=== PATIENT | female | born 1985 | race African-American/Black ===

== ENCOUNTER 2017-05-22 17:15 | Inpatient (IN) | payer OTHER ==
[2017-05-28 13:37] VITALS: BMI 69.4
[2017-06-06] MEDS ORDERED: Heparin 5,000 UNITS/ML VIAL ONE (15:17)
[2017-06-06] MEDS ORDERED: CEFAZOLIN/Water 2 GM/20 ML SYRINGE ONE (15:17)
[2017-06-06] MEDS ORDERED: Midazolam HCl 2 mg/2 ml Vial ONE (16:29)
[2017-06-06] MEDS ORDERED: Fentanyl 250 MCG/5 ML VIAL ONE (16:29)
[2017-06-06] MEDS ORDERED: Bupivacaine/Epinephrine 0.25% 30 ML VIAL ONE (16:43)
[2017-06-06] MEDS ORDERED: Ondansetron HCl/PF 4 MG/2 ML Vial ONE (16:44)
[2017-06-06] MEDS ORDERED: Glycopyrrolate 0.2 MG/ML 5 ML SYRINGE ONE (16:44)
[2017-06-06] MEDS ORDERED: Lidocaine 1% PF 5 ML VIAL ONE (16:44)
[2017-06-06] MEDS ORDERED: Propofol 200 MG/20 ML VIAL ONE (16:44)
[2017-06-06] MEDS ORDERED: Succinylcholine Chloride 20 MG/ML 10 ml SYRINGE FS ONE (16:44)
[2017-06-06] MEDS ORDERED: Ketorolac Tromethamine 30 MG/ML VIAL ONE (16:44)
[2017-06-06] MEDS ORDERED: Fentanyl 100 MCG/2 ML VIAL ONE ×3 (17:51→19:39)
[2017-06-06] MEDS ORDERED: HYDROmorphone 0.5 MG/0.5 ML SYRINGE ONE (17:52)
[2017-06-06] MEDS ORDERED: HYDROmorphone 2 MG/ML VIAL SLOW IVP PRN (18:59)
[2017-06-06] MEDS ORDERED: Promethazine HCl 25 MG/ML VIAL IM PRN ×2 (18:59→20:47)
[2017-06-06] MEDS ORDERED: Promethazine HCl 25 MG/ML VIAL SLOW IVP PRN (18:59)
[2017-06-06] MEDS ORDERED: Ondansetron HCl/PF 4 MG/2 ML Vial IVP PRN ×2 (18:59→20:47)
[2017-06-06] MEDS ORDERED: Promethazine HCl 25 MG/ML VIAL ONE (19:20)
[2017-06-06] MEDS ORDERED: Fentanyl 5000 MCG/250 ML CADD IVPB PRN (19:27)
[2017-06-06] MEDS ORDERED: diphenhydrAMINE 50 MG/ML VIAL IM PRN (19:27)
[2017-06-06] MEDS ORDERED: Naloxone HCl 0.4 mg/ml Vial IV PRN (19:27)
[2017-06-06] MEDS ORDERED: diphenhydrAMINE 25 MG CAP PO PRN (19:27)
[2017-06-06] MEDS ORDERED: Zolpidem Tartrate 5 MG TAB PO PRN (19:27)
[2017-06-06] MEDS ORDERED: diphenhydrAMINE 50 MG/ML VIAL IVP PRN ×2 (19:27→20:47)
[2017-06-06] MEDS ORDERED: Communication Order-Pharmacy FS SCH (19:30)
[2017-06-06] MEDS ORDERED: fentaNYL Citrate/PF 2,000 MCG in Sodium Chloride 0.9% 60 ML IV PRN (19:45)
[2017-06-06] MEDS ORDERED: Dextrose 5% in Water 1,000 ML IV PRN (20:47)
[2017-06-06] MEDS ORDERED: HumaLOG 300 UNITS/3 ML VIAL SC PRN (20:47)
[2017-06-06] MEDS ORDERED: Dextrose 50% Abboject 50 ML SYRINGE SLOW IVP PRN (20:47)
[2017-06-06] MEDS: 1/2 NS w/KCL 20 mEq 1,000 ML IV SCH (21:09)
[2017-06-06] MEDS: Ondansetron HCl/PF 4 MG/2 ML Vial IVP PRN (21:10)
[2017-06-06] MEDS: Promethazine HCl 25 MG/ML VIAL IM PRN (22:46)
[2017-06-07] MEDS: hydrALAZINE 20 MG/ML VIAL SLOW IVP PRN ×2 (00:29→09:03)
--- NOTE | 2017-06-07 01:21 | OP ---
DATE OF PROCEDURE: 06/06/2017 PREOPERATIVE DIAGNOSES: 1. Morbid obesity with a body mass index of 66. 2. Hypertension. 3. Diabetes mellitus, type 2. POSTOPERATIVE DIAGNOSES: 1. Morbid obesity with a body mass index of 66. 2. Hypertension. 3. Diabetes mellitus, type 2. PROCEDURES: 1. Laparoscopic sleeve gastrectomy with [place] staple line reinforcements and 38 [place] bougie. 2. EGD. SURGEON: Zana Gomes M.D. ANESTHESIA: General. ESTIMATED BLOOD LOSS: 50 mL. COMPLICATIONS: None. FINDINGS: Normal postoperative esophagogastroduodenoscopy. INDICATION: The patient is a 31-year-old female with a history of super morbid obesity associated wi th hypertension and diabetes mellitus. She now presents for weight loss surgery. She has attended o preoperative seminar and had the dietary counseling, preoperative education, and psychologic evalu ation. She understands risks, benefits, alternative procedures for weight loss and gives consent for sleeve gastrectomy. TECHNIQUE: The patient was taken to the operating room and laid supine on the operating room supine on the table. After general anesthetic was obtained, OG tube was used to decompress the stomach. Ar ms, and legs were double strapped to a bariatric table. Her abdomen was prepped and draped in a ster ile fashion. Left subcostal 5-mm Optiview trocar placed in the usual fashion and high-flow pneumoper itoneum was obtained. Left and right abdominal 12-mm ports as well as right subcostal 5-mm port were placed under direct visualization. A 5-mm incision was made at the xiphoid. The Deb was used to raise the liver off the GE junction. Short gastrics were taken down from mid body of stomach to left alejandro of diaphragm. Left alejandro of diaphragm, angle of His, and posterior fundus were completely d issected. The short gastrics were taken down to a distance of 6 cm proximal to the pylorus. Multipl e loads of an [place] stapling device are used to form the sleeve. The 38 bougie was brought in and its tip left in the antrum of the stomach. The first fire was fired up at a distance of 6 cm proxima l to the pylorus angled up towards the incisura. Care was taken to avoid being too close to the inci bret. Multiple loads were then fired up along the bougie and the stomach was completely transected a t the angle of His. The stomach was removed from the left abdominal incision. This fascial defect w as closed using GraNee needle and 0 Vicryl ties. All port sites were infiltrated using local anesthe tic. EGD scope was passed via esophagus, stomach to the level of the duodenum without obstruction. There was no air leakage through the staple line, no bleeding internally or externally on the staple line. EGD scope was used to decompress the stomach, it was pulled and removed. The Deb retrac tor was removed under direct visualization without bleeding. All ports are removed under direct visu alization without bleeding. Pneumoperitoneum was let down. Vicryl was used to close the fascial def ect from left abdominal incision. All incisions were irrigated and closed using 4-0 Monocryl and Abelino mabond. The patient went to recovery room in stable condition. All instrument counts, needle counts , and lap counts were correct.
[2017-06-07] MEDS: Ondansetron HCl/PF 4 MG/2 ML Vial IVP PRN ×3 (03:24→17:06)
[2017-06-07] MEDS: Promethazine HCl 25 MG/ML VIAL IM PRN ×3 (05:26→19:49)
[2017-06-07] MEDS: 1/2 NS w/KCL 20 mEq 1,000 ML IV SCH ×2 (05:28→13:38)
[2017-06-07 05:32] LABS: #Lymphocytes 1.2 thou/uL (1.20-3.40); #Monocytes 0.6 thou/uL (0.11-0.59); #Neutrophils 9.6 thou/uL (1.40-6.50); %Basophils 0.2 % (0.0-1.0); %Eosinophils 0.1 % (0.0-10.0); %Lymphocytes 10.1 % (21.0-51.0); %Monocytes 5.3 % (0.0-10.0); %Neutrophils 84.3 % (42.0-75.0); Hemoglobin 12.3 g/dL (12.0-16.0); Mean Corpuscular HGB CONC 33.3 g/dL (32.0-36.0); Mean Corpuscular Volume 87.1 fl (81.0-99.0); Mean Platelet Volume 7.6 fL (7.4-10.4); Platelet Count 259 thou/uL (130-400); RBC Distribution Width 13.8 % (11.5-14.5); Red Blood Cell (RBC) Count 4.23 mill/uL (4.20-5.40); White Blood Cell (WBC) Count 11.4 thou/uL (4.8-10.8)
[2017-06-07 05:39] LABS: Anion Gap 13 mmol/L (10-20); BUN (Urea Nitrogen) 8 mg/dL (7.0-18.7); Calc. Creatinine Clearance 345 mL/min (70-130); Calcium 9.3 mg/dL (7.8-10.44); Carbon Dioxide 24 mmol/L (22-29); Chloride 102 mmol/L (98-107); Estimated GFR-MDRD Greater than 90; Glucose 165 mg/dL (70-105); Potassium 4.1 mmol/L (3.5-5.1); Sodium 135 mmol/L (136-145)
[2017-06-07] MEDS: Pantoprazole 40 MG VIAL IVP SCH (08:51)
[2017-06-07] MEDS: Enoxaparin Sodium 40 MG/0.4 ML SYRINGE SC SCH (08:51)
--- NOTE | 2017-06-07 09:23 | RAD ---
LIMITED UPPER GI WITH 15 ML GASTROGRAFIN: History: Post bariatric surgery. FINDINGS: There is good passage of contrast from the esophagus into the gastric remnant. No contrast extravasat ion is seen. IMPRESSION: No evidence of obstruction or leak. POS: PATY
[2017-06-07] MEDS: Hydrocodone-Acetamin 15 ML UDCUP PO PRN ×4 (10:47→19:48)
[2017-06-07] MEDS ORDERED: cloNIDine 0.1 MG TAB PO PRN (11:12)
--- NOTE | 2017-06-07 11:37 | PRG ---
DATE OF SERVICE: 06/07/2017 SUBJECTIVE: Postop day #1, gastric sleeve. Ms. Strickland is complaining of nausea this morning. Her swallow test was clear without leak and there was good passage of contrast through the stomach. She has been ambulatory once last night. She was done late in the day yesterday. PHYSICAL EXAMINATION: VITAL SIGNS: Her blood pressure is high at 170/90, pulse 92, temperature 98.2. ABDOMEN: Soft, appropriately tender. Wounds healing well. ASSESSMENT: Postop day #1, gastric sleeve. PLAN: Continue observation. Switch to oral pain control.
[2017-06-07] MEDS ORDERED: Triamterene/Hydrochlorothiazide 37.5 mg/25 mg Tablet PO SCH (13:30)
[2017-06-07] MEDS ORDERED: Losartan Potassium 25 MG TAB PO SCH (13:30)
[2017-06-07] MEDS ORDERED: Amlodipine 10 MG TAB PO SCH (13:30)
[2017-06-07] MEDS ORDERED: Amitriptyline HCl 25 MG TAB PO SCH (21:00)
[2017-06-08] MEDS: Ondansetron HCl/PF 4 MG/2 ML Vial IVP PRN ×3 (00:14→15:02)
[2017-06-08] MEDS: Hydrocodone-Acetamin 15 ML UDCUP PO PRN ×4 (00:14→15:02)
[2017-06-08] MEDS: 1/2 NS w/KCL 20 mEq 1,000 ML IV SCH (03:00)
[2017-06-08] MEDS: Promethazine HCl 25 MG/ML VIAL IM PRN (05:01)
[2017-06-08] MEDS ORDERED: Losartan Potassium 25 MG TAB PO SCH (09:00)
[2017-06-08] MEDS ORDERED: Amlodipine 10 MG TAB PO SCH ×2 (09:00)
[2017-06-08] MEDS ORDERED: FLUoxetine HCl 10 MG CAP PO SCH (09:00)
[2017-06-08] MEDS ORDERED: Triamterene/Hydrochlorothiazide 37.5 mg/25 mg Tablet PO SCH (09:00)
[2017-06-08] MEDS: Pantoprazole 40 MG VIAL IVP SCH (09:55)
[2017-06-08] MEDS: Enoxaparin Sodium 40 MG/0.4 ML SYRINGE SC SCH (09:56)
[2017-06-08 12:13] VITALS: BP 120/82; TEMP 97.7
== END 2017-06-08 15:38 | disposition home or self-care (01) | DRG 621 ==
LOC: SURG B 06-06 14:33 → SURG A 06-06 20:35
PROVIDERS: ADMIT Surgery; ATTEND Surgery
PROC: 0DB64Z3 Excision of Stomach, Percutaneous Endoscopic Approach, Vertical (ICD-10-PCS; principal; 2017-06-06)
PROC: 3E0T3BZ Introduction of Anesthetic Agent into Peripheral Nerves and Plexi, Percutaneous Approach (ICD-10-PCS; 2017-06-06)
DX: E66.01 Morbid (severe) obesity due to excess calories (principal); E11.69 Type 2 diabetes mellitus with other specified complication; I10 Essential (primary) hypertension; Z68.44 Body mass index [BMI] 60.0-69.9, adult; Z91.013 Allergy to seafood
CPT/HCPCS: 36415; 36416; 74241; 80048; 85025; 88307; 88312; C9113; J0360; J1170; J1200; J1644; J1650; J1885; J2001; J2250; J2405; J2550; J2704; J3010; J7050

== ENCOUNTER 2017-05-28 13:17 | Outpatient (CLI) | payer OTHER ==
[2017-05-28 14:29] LABS: #Eosinphils 0.3 thou/uL (0.0-0.7); #Lymphocytes 1.8 thou/uL (1.20-3.40); #Monocytes 0.5 thou/uL (0.11-0.59); %Basophils 0.4 % (0.0-1.0); %Eosinophils 3.3 % (0.0-10.0); %Lymphocytes 23.8 % (21.0-51.0); %Monocytes 6.5 % (0.0-10.0); Hematocrit 36.3 % (36.0-47.0); Mean Platelet Volume 7.7 fL (7.4-10.4); Red Blood Cell (RBC) Count 4.13 mill/uL (4.20-5.40); White Blood Cell (WBC) Count 7.6 thou/uL (4.8-10.8)
[2017-05-28 14:51] LABS: Hemoglobin A1c 7.1 % (4.0-6.0)
[2017-05-28 14:55] LABS: ALT (SGPT) 43 U/L (8-55); AST (SGOT) 57 U/L (5-34); Alkaline Phosphatase 97 U/L (40-150); Anion Gap 11 mmol/L (10-20); BUN (Urea Nitrogen) 9 mg/dL (7.0-18.7); Bilirubin, Direct 0.3 mg/dL (0.1-0.3); Bilirubin, Total 0.7 mg/dL (0.2-1.2); Calc. Creatinine Clearance 0 mL/min (70-130); Calcium 8.7 mg/dL (7.8-10.44); Carbon Dioxide 29 mmol/L (22-29); Chloride 102 mmol/L (98-107); Estimated GFR-MDRD Greater than 90; Globulin 3.1 g/dL (2.4-3.5)
--- NOTE | 2017-05-28 16:28 | RAD ---
CHEST TWO VIEWS: Comparison: 02-13-08 History: Pre-operative exam. FINDINGS: Normal cardiac silhouette. The pulmonary vessels and hilum are normal. No mass. No consolidation. No pneumothorax or osseous abnormalities. IMPRESSION: No acute cardiopulmonary process. POS: ISATU
--- NOTE | 2017-05-29 16:31 | EKG ---
Test Reason : Blood Pressure : / mmHG Vent. Rate : 081 BPM Atrial Rate : 081 BPM P-R Int : 154 ms QRS Dur : 088 ms QT Int : 400 ms P-R-T Axes : 008 007 032 degrees QTc Int : 464 ms Normal sinus rhythm Nonspecific ST abnormalty Borderline ECG Confirmed by JACKIE KHAN ([id number]) on 05/29/2017 4:31:00 PM Referred By: ISAIAS Confirmed By:JACKIE KHAN
== END 2017-05-28 13:18 | disposition home or self-care (01) ==
LOC: LABBT 13:17
PROVIDERS: ATTEND Surgery
DX: Z01.818 Encounter for other preprocedural examination (principal); E66.01 Morbid (severe) obesity due to excess calories
CPT/HCPCS: 71020; 80053; 80076; 83036; 84703; 85025; 93005; 93010

== ENCOUNTER → 2017-10-20 | Day surgery (SDC) | payer OTHER | LOC: SCSER/OP 11:29 | PROVIDERS: ATTEND Surgery | DX: R19.7 Diarrhea, unspecified (principal); Z91.013 Allergy to seafood ==

== ENCOUNTER 2018-04-24 10:57 | Day surgery (SDC) | payer OTHER ==
[2018-04-23 10:47] VITALS: BMI 48.4
[2018-04-24] MEDS ORDERED: hydrALAZINE 20 MG/ML VIAL ONE (12:05)
[2018-04-24 12:07] LABS: BHCG - Serum Negative (NEGATIVE); Pregs Control Background? CLEAR/WHITE (CLR/WHITE); Pregs Control Bar Appear? YES (CONTROL BAR)
[2018-04-24] MEDS ORDERED: Midazolam HCl 2 mg/2 ml Vial ONE (12:11)
[2018-04-24] MEDS ORDERED: Metoprolol Tartrate 5 MG/5 ML VIAL ONE (13:13)
[2018-04-24] MEDS ORDERED: Fentanyl 100 MCG/2 ML VIAL ONE (13:14)
[2018-04-24] MEDS ORDERED: Famotidine/PF 20 mg/2ml Vial ONE (13:14)
[2018-04-24] MEDS ORDERED: Meperidine HCl/PF 25 MG/ML VIAL ONE (13:14)
== END 2018-04-24 16:56 | disposition home or self-care (01) ==
LOC: SDC 10:57
PROVIDERS: ATTEND Otolaryngology Plastic Surgery within the Head & Neck
DX: J35.01 Chronic tonsillitis (principal); I10 Essential (primary) hypertension; G47.33 Obstructive sleep apnea (adult) (pediatric); E11.9 Type 2 diabetes mellitus without complications; H69.80 Other specified disorders of Eustachian tube, unspecified ear; J32.9 Chronic sinusitis, unspecified; M19.90 Unspecified osteoarthritis, unspecified site; E66.01 Morbid (severe) obesity due to excess calories; Z68.42 Body mass index [BMI] 45.0-49.9, adult; Z53.09 Procedure and treatment not carried out because of other contraindication; Z79.899 Other long term (current) drug therapy; Z91.013 Allergy to seafood; Z99.89 Dependence on other enabling machines and devices
CPT/HCPCS: 36415; 84703; 85014; J0131; J0360; J2175; J2250; J3010; S0028

== ENCOUNTER 2018-05-01 10:49 | Day surgery (SDC) | payer OTHER ==
[2018-04-30 11:05] VITALS: BMI 46.3
[~2018-05-01 10:49] MED LIST: Dexamethasone 20 MG/5 ML VIAL ONE; Lidocaine 1% PF 5 ML VIAL ONE; Ondansetron PF 4 MG/2 ML Vial ONE; PROPOFOL 200 MG/20 ML VIAL ONE; Succinylcholine Chloride 20 MG/ML 10 ml SYRINGE FS ONE
[2018-05-01] MEDS ORDERED: Midazolam HCl 2 mg/2 ml Vial ONE ×2 (11:57→13:47)
[2018-05-01] MEDS ORDERED: Fentanyl 100 MCG/2 ML VIAL ONE ×4 (13:47→15:36)
[2018-05-01] MEDS ORDERED: Promethazine HCl 25 MG/ML VIAL ONE (14:48)
[2018-05-01] MEDS ORDERED: Non-Formulary Medication 1 EACH PO PRN (15:24)
[2018-05-01] MEDS ORDERED: Promethazine HCl 25 MG/ML VIAL IM/IV PRN (15:24)
[2018-05-01] MEDS ORDERED: Ondansetron HCl/PF 4 MG/2 ML Vial IVP PRN (15:24)
[2018-05-01] MEDS ORDERED: HYDROmorphone 2 MG/ML VIAL SLOW IVP PRN (15:24)
[2018-05-01] MEDS ORDERED: Hydrocodone-Acetamin 15 ML UDCUP ONE (16:41)
--- NOTE | 2018-05-05 12:15 | OP ---
DATE OF PROCEDURE: 05/01/2018 PREOPERATIVE DIAGNOSES: 1. Chronic adenotonsillitis. 2. Adenotonsillar hypertrophy. POSTOPERATIVE DIAGNOSES: 1. Chronic adenotonsillitis. 2. Adenotonsillar hypertrophy. PROCEDURE: Tonsillectomy and adenoidectomy. SURGEON: King Kulkarni M.D. ESTIMATED BLOOD LOSS: 0 mL COMPLICATIONS: None. ANESTHESIA: GETA. PROCEDURE IN DETAIL: After consent was obtained, the patient was identified, brought to the operatin g room, and placed on the operating table in the supine position. General endotracheal anesthesia an d intravenous access was obtained and we proceeded with positioning the patient for oropharyngeal joel katerina. Oropharyngeal exposure was obtained with a Flores-Sumeet mouth gag after a head drape was placed and secured with a towel clip. The Flores-Sumeet mouth gag was then suspended from the Moreno tray and palatal elevation was achieved with a red rubber catheter. The right tonsil was addressed first. We used a curved Allis to grasp the tonsil and retract it medially as an anterior pillar incision was m lesley. The retrotonsillar fascial plane was then established and blunt dissection was performed with t he suction cautery. Blood vessels were anticipated, identified, and cauterized as they were encounte red. Ultimately, dissection was carried to the posterior tonsillar pillar mucosa which was incised h emostatically, as well as the base of tongue connection. The tonsil was then passed off as a specime n and bleeding points within the tonsillar bed were cauterized under direct visualization. We subseq uently turned our attention to the contralateral side, where using a similar technique, a near identi oscar procedure was performed. Again, the tonsil was grasped and retracted medially with a curved Alfa s. The retrotonsillar fascial plane was established and while the anterior pillar was retracted medi ally, the hemostatic blunt dissection of the tonsil with a suction cautery was performed with blood v essels anticipated, identified, and cauterized as they were encountered. Again, dissection continue d to the base of tongue and posterior tonsillar pillar mucosa which was incised in a hemostatic fashi on. The tonsillar beds were then carefully inspected and bleeding points were identified and cauteri zed with a suction cautery. After this portion of the procedure, hemostasis was completely obtained. Under direct mirror visualization, we visualized the adenoid pad. Under direct mirror visualizatio n, we removed the bulk of the adenoid tissue with the adenoid curette. We then packed the nasopharyn x for an appropriate period of time with Antonio-Synephrine saturated tonsillar sponges. After a period of observation, we removed the pack. Under indirect mirror visualization, we obtained hemostasis and vaporization of residual adenoid tissue with electrocautery. The patient's oral cavity was copiousl y irrigated with iced saline and subsequently suctioned. After completion of the procedure, the nasa l cavity and oropharynx were irrigated and suctioned as were the gastric contents. The patient was t hen awakened and transferred to the recovery room where the patient remained in stable condition prio r to discharge to Day Stay.
== END 2018-05-01 16:50 | disposition home or self-care (01) ==
LOC: SDC 10:49
PROVIDERS: ATTEND Otolaryngology Plastic Surgery within the Head & Neck
PROC: 0CTQXZZ Resection of Adenoids, External Approach (ICD-10-PCS; principal; 2018-05-01)
PROC: 0CTPXZZ Resection of Tonsils, External Approach (ICD-10-PCS; principal; 2018-05-01)
DX: J35.03 Chronic tonsillitis and adenoiditis (principal); G47.33 Obstructive sleep apnea (adult) (pediatric); M19.90 Unspecified osteoarthritis, unspecified site; H69.80 Other specified disorders of Eustachian tube, unspecified ear; I10 Essential (primary) hypertension; J32.9 Chronic sinusitis, unspecified; E66.01 Morbid (severe) obesity due to excess calories; Z68.42 Body mass index [BMI] 45.0-49.9, adult; Z79.899 Other long term (current) drug therapy; Z91.013 Allergy to seafood; Z99.89 Dependence on other enabling machines and devices
CPT/HCPCS: 88304; 96374; 96375; 96376; J1100; J2001; J2250; J2405; J2550; J2704; J3010; J3490

== ENCOUNTER 2019-06-09 10:44 | Outpatient (CLI) | payer OTHER | END 2019-06-09 10:45 | disposition home or self-care (01) | LOC: CTENTCT 10:44 | PROVIDERS: ATTEND Otolaryngology Plastic Surgery within the Head & Neck | DX: J32.8 Other chronic sinusitis (principal) | CPT/HCPCS: 70486 ==

== ENCOUNTER 2019-11-13 16:47 | Outpatient (CLI) | payer OTHER | END 2019-11-13 16:48 | disposition home or self-care (01) | LOC: CTENTCT 16:47 | PROVIDERS: ATTEND Otolaryngology Plastic Surgery within the Head & Neck | DX: J32.9 Chronic sinusitis, unspecified (principal) | CPT/HCPCS: 70486 ==

== ENCOUNTER 2020-01-13 09:33 | Outpatient (CLI) | payer OTHER ==
--- NOTE | 2020-01-13 10:10 | ULT ---
Exam: Right upper quadrant ultrasound: HISTORY: Right upper quadrant abdominal pain. COMPARISON: None FINDINGS: Liver: Enlarged in craniocaudal dimensions measuring 21 cm. The liver also measures 21 cm in cranioca udal dimensions on prior CT examination on 07/21/2016. No focal hepatic mass is appreciated on this exam. Gallbladder: No evidence of gallbladder calculi, gallbladder wall thickening, or pericholecystic flui d. Common bile duct: The common duct is normal in caliber measuring 0.5 cm in diameter. Pancreas: Limited visualized portions of the pancreas demonstrate a normal sonographic appearance. Right kidney: Right kidney demonstrates a normal sonographic appearance. The right kidney measures 1 0.9 cm in length. IVC: The visualized IVC demonstrates a normal sonographic appearance. IMPRESSION: 1. Hepatomegaly. 2. Normal appearance of the gallbladder without gallbladder calculus. Common duct is normal in janel rPhuc
== END 2020-01-13 09:34 | disposition home or self-care (01) ==
LOC: SCSULT 09:33
PROVIDERS: ATTEND Surgery
DX: R10.11 Right upper quadrant pain (principal); R16.0 Hepatomegaly, not elsewhere classified
CPT/HCPCS: 76705

== ENCOUNTER 2020-01-30 07:43 | Outpatient (CLI) | payer OTHER ==
--- NOTE | 2020-01-30 11:55 | NM ---
NUCLEAR MEDICINE HEPATOBILIARY SCAN: DATE: 01/30/2020 HISTORY: 34-year-old female with right upper quadrant abdominal pain TECHNIQUE: Technetium 99m-mebrofenin dose:4.9 mCi. Fatty meal Ensure: 6 8 oz. Tc 99- mebrofenin injected IV. Dynamic anterior scintigraphy of abdomen for one hour. Fatty meal admi nistered. Additional dynamic anterior scintigraphy of abdomen. Counts obtained over the gallbladder. Time-activity curve generated. FINDINGS: There is faint, somewhat heterogeneous uptake of the liver. Uncertain whether this represents hepatoc ellular disease or is technical due to body habitus. There is strong uptake in the gallbladder. Bowel activity is visualized. The gallbladder ejection fraction is normal: 76 % IMPRESSION: Normal gallbladder ejection fraction.
== END 2020-01-30 07:44 | disposition home or self-care (01) ==
LOC: NM 07:43
PROVIDERS: ATTEND Surgery
DX: R10.11 Right upper quadrant pain (principal)
CPT/HCPCS: 78227; A9537

== ENCOUNTER 2020-02-26 09:51 | Day surgery (SDC) | payer OTHER ==
[2020-02-24 11:05] VITALS: BMI 49.2
[2020-02-26] MEDS ORDERED: PROPOFOL 200 MG/20 ML VIAL ONE (11:05)
[2020-02-26] MEDS ORDERED: Lidocaine 1% PF 5 ML VIAL ONE (11:05)
[2020-02-26] MEDS ORDERED: Ondansetron PF 4 MG/2 ML Vial ONE (12:31)
--- NOTE | 2020-02-26 16:16 | OP ---
DATE OF PROCEDURE: 02/26/2020 TITLE OF PROCEDURE: Esophagogastroduodenoscopy with biopsy. PREPROCEDURE DIAGNOSES: 1. Epigastric pain. 2. Nausea, vomiting. 3. Diarrhea. 4. History of sleeve gastrectomy in early 2018. POSTPROCEDURE DIAGNOSES: 1. Exam to second portion of duodenum. 2. Small sliding hiatal hernia at 36 cm, about 1 to 2 cm in length. 3. Postsurgical changes consistent with previous sleeve gastrectomy. 4. Mild patchy erythema, gastric antrum, biopsied. 5. Normal duodenum, no evidence of duodenal ulcer. PROCEDURE IN DETAIL: Written informed consent was obtained. The patient was brought to the endoscopy suite. Total intravenous anesthesia was administered by Mr. Mauricio Bolton CRNA. The patient was placed in the left lateral decubitus position. A bite block was inserted into the mouth. A Pentax video diagnostic gastroscope was introduced into the oral cavity and the esophagus was carefully intubated. The gastroscope was advanced under direct visualization to the second portion of the duodenum. Endoscopic findings revealed a small sliding hiatal hernia about 1 to 2 cm in length. The GE junction was estimated at 36 cm from the incisors. Biopsies were obtained in the lower esophagus for histology. No overt esophageal ulcer or erosive esophagitis was seen. The stomach was entered and carefully examined. The lumen of the fundus and body demonstrated changes consistent with previous sleeve gastrectomy. No ulcer or mass was identified. In the gastric antrum, mild patchy erythema suggestive of possible early gastritis was identified and biopsies were obtained for histology. The duodenum from the bulb to the second portion was then examined and appeared grossly normal. No duodenal ulcers or gastric outlet obstruction was identified. The stomach was decompressed as the endoscope was completely removed from the patient. There were no immediate complications. She was transferred to the Day Stay surgery area for postprocedure monitoring. RECOMMENDATIONS: 1. Await biopsy results. 2. Ask the patient to call me in one week for biopsy results. 3. Increase pantoprazole to 40 mg p.o. b.i.d. 4. Follow up in GI clinic in about 4 weeks. Job ID: [id number]
== END 2020-02-26 13:00 | disposition home or self-care (01) ==
LOC: SDC 09:51
PROVIDERS: ATTEND Internal Medicine Gastroenterology
PROC: 0DB78ZX Excision of Stomach, Pylorus, Via Natural or Artificial Opening Endoscopic, Diagnostic (ICD-10-PCS; principal; 2020-02-26)
PROC: 0DB38ZX Excision of Lower Esophagus, Via Natural or Artificial Opening Endoscopic, Diagnostic (ICD-10-PCS; principal; 2020-02-26)
DX: K29.50 Unspecified chronic gastritis without bleeding (principal); K21.0 Gastro-esophageal reflux disease with esophagitis; K44.9 Diaphragmatic hernia without obstruction or gangrene; R11.2 Nausea with vomiting, unspecified; R19.7 Diarrhea, unspecified; Z79.899 Other long term (current) drug therapy; Z91.013 Allergy to seafood; Z98.84 Bariatric surgery status
CPT/HCPCS: 88305; 88312; 88313; J2405; J2704

== ENCOUNTER 2020-02-27 07:56 | Outpatient (CLI) | payer OTHER ==
--- NOTE | 2020-02-27 11:47 | RAD ---
XR Small Bowel STANDARD HISTORY: Epigastric pain, nausea and vomiting COMPARISON: None. FINDINGS: There is unobstructed flow of contrast from the stomach into the duodenum, jejunum, ileum a nd finally colon. There is faint contrast in the colon on the 2 hour image. The small bowel loops are not abnormally dilated. The mucosal pattern appears normal. The patient left prior to completion of the exam. IMPRESSION: No significant abnormalities are seen.
== END 2020-02-27 07:57 | disposition home or self-care (01) ==
LOC: RAD 07:56
PROVIDERS: ATTEND Internal Medicine Gastroenterology
DX: K21.9 Gastro-esophageal reflux disease without esophagitis (principal); R10.13 Epigastric pain; R11.2 Nausea with vomiting, unspecified; R63.0 Anorexia; R19.7 Diarrhea, unspecified; E66.9 Obesity, unspecified
CPT/HCPCS: 74250

== ENCOUNTER 2020-09-02 17:00 | Inpatient (IN) | payer OTHER ==
[2020-09-06] MEDS ORDERED: Heparin 5,000 UNITS/ML VIAL ONE (09:26)
[2020-09-06] MEDS ORDERED: Fentanyl 100 MCG/2 ML VIAL ONE ×4 (10:59→14:31)
[2020-09-06] MEDS ORDERED: PROPOFOL 200 MG/20 ML VIAL ONE (11:14)
[2020-09-06] MEDS ORDERED: Dexamethasone 20 MG/5 ML VIAL ONE (11:14)
[2020-09-06] MEDS ORDERED: Rocuronium Bromide 10 MG/ML (10ML VIAL) ONE (11:14)
[2020-09-06] MEDS ORDERED: Ondansetron PF 4 MG/2 ML Vial ONE (11:14)
[2020-09-06] MEDS ORDERED: Bupivacaine 0.25% HCL 30 ML VIAL ONE (11:34)
[2020-09-06] MEDS ORDERED: XYLOCAINE 2%-EPI 1:100,000 20 ML VIAL ONE (11:34)
[2020-09-06] MEDS ORDERED: Rocuronium Bromide 50 MG/5 ML VIAL ONE (12:08)
[2020-09-06] MEDS ORDERED: SUGAMMADEX SODIUM 500 MG/5 ML VIAL ONE (12:08)
[2020-09-06] MEDS ORDERED: Ondansetron PF 4 MG/2 ML Vial IVP PRN (14:00)
[2020-09-06] MEDS ORDERED: diphenhydrAMINE 50 MG/ML VIAL IVP PRN ×2 (14:00→14:14)
[2020-09-06] MEDS ORDERED: Promethazine HCl 25 MG/ML VIAL IM PRN ×2 (14:00→14:04)
[2020-09-06] MEDS ORDERED: Dextrose 5% in Water 1,000 ML IV PRN (14:00)
[2020-09-06] MEDS ORDERED: Dextrose 50% Abboject 50 ML SYRINGE SLOW IVP PRN (14:00)
[2020-09-06] MEDS ORDERED: hydrALAZINE 20 MG/ML VIAL SLOW IVP PRN (14:00)
[2020-09-06] MEDS ORDERED: Hydrocodone-Acetamin 15 ML UDCUP PO PRN (14:00)
[2020-09-06] MEDS ORDERED: PACU-Morphine 4MG/ML VIAL SLOW IVP PRN (14:04)
[2020-09-06] MEDS ORDERED: Meperidine HCl/PF 25 MG/ML VIAL SLOW IVP PRN (14:04)
[2020-09-06] MEDS ORDERED: Ondansetron HCl/PF 4 MG/2 ML Vial IVP PRN (14:04)
[2020-09-06] MEDS ORDERED: Ketorolac Tromethamine 30 MG/ML VIAL IVP PRN (14:04)
[2020-09-06] MEDS ORDERED: Morphine Sulfate 2 MG/ML SYRINGE SLOW IVP PRN (14:04)
[2020-09-06] MEDS ORDERED: HYDROmorphone 2 MG/ML VIAL SLOW IVP PRN (14:04)
[2020-09-06] MEDS ORDERED: Promethazine HCl 25 MG/ML VIAL SLOW IVP PRN (14:04)
[2020-09-06] MEDS ORDERED: fentaNYL Citrate/PF 2,000 MCG in Sodium Chloride 0.9% 60 ML IV PRN (14:14)
[2020-09-06] MEDS ORDERED: Naloxone HCl 0.4 mg/ml Vial IV PRN (14:14)
[2020-09-06] MEDS ORDERED: Zolpidem Tartrate 5 MG TAB PO PRN (14:14)
[2020-09-06] MEDS ORDERED: diphenhydrAMINE 25 MG CAP PO PRN (14:14)
[2020-09-06] MEDS ORDERED: diphenhydrAMINE 50 MG/ML VIAL IM PRN (14:14)
[2020-09-06] MEDS ORDERED: Communication Order-Pharmacy FS SCH (14:15)
[2020-09-06] MEDS ORDERED: Ketorolac Tromethamine 30 MG/ML VIAL ONE (14:18)
[2020-09-06] MEDS ORDERED: Promethazine HCl 25 MG/ML VIAL ONE (14:25)
[2020-09-06] MEDS ORDERED: Sodium Chloride 0.9% (PF) 10 ML VIAL FS PRN (14:45)
[2020-09-06] MEDS ORDERED: HYDROmorphone 0.5 MG/0.5 ML SYRINGE ONE ×2 (14:55→15:20)
[2020-09-06 17:04] VITALS: BMI 57.7
[2020-09-06] MEDS: D5 1/2 NS w/20 mEq KCL 1,000 ML IV SCH (17:42)
[2020-09-06] MEDS: Ondansetron PF 4 MG/2 ML Vial IVP PRN (17:43)
[2020-09-06] MEDS: Promethazine HCl 25 MG/ML VIAL IM PRN ×2 (18:52→23:11)
[2020-09-06] MEDS ORDERED: Enoxaparin Sodium 40 MG/0.4 ML SYRINGE SC SCH (21:00)
[2020-09-06] MEDS ORDERED: Amitriptyline HCl 25 MG TAB PO SCH (21:00)
[2020-09-06] MEDS: Cepastat Lozenges 1 LOZ PO PRN (21:34)
[2020-09-07] MEDS: Ketorolac Tromethamine 30 MG/ML VIAL IVP PRN ×2 (01:40→08:06)
[2020-09-07] MEDS: D5 1/2 NS w/20 mEq KCL 1,000 ML IV SCH ×3 (01:41→15:30)
[2020-09-07] MEDS: Promethazine HCl 25 MG/ML VIAL IM PRN ×2 (04:54→14:44)
[2020-09-07 05:34] LABS: Hemoglobin 11.5 g/dL (12.0-16.0); Mean Corpuscular HGB CONC 34.2 g/dL (32.0-36.0); Mean Corpuscular Hemoglobin 30.5 pg (27.0-31.0); Mean Corpuscular Volume 89.2 fL (78.0-98.0); Mean Platelet Volume 7.7 fL (7.4-10.4); Platelet Count 233 thou/uL (130-400); RBC Distribution Width 13.7 % (11.5-14.5); Red Blood Cell (RBC) Count 3.76 mill/uL (4.20-5.40)
[2020-09-07 05:46] LABS: Anion Gap 13 mmol/L (10-20); BUN (Urea Nitrogen) 6 mg/dL (7.0-18.7); Calc. Creatinine Clearance 288 mL/min (70-130); Calcium 8.6 mg/dL (7.8-10.44); Carbon Dioxide 23 mmol/L (22-29); Chloride 102 mmol/L (98-107); Glucose 191 mg/dL (70-105); Potassium 3.6 mmol/L (3.5-5.1); Sodium 134 mmol/L (136-145)
[2020-09-07 06:02] LABS: Band 20 % (5-11); Lymphocytes 12 % (21-51); MDiff Complete? YES; Monocytes 2 % (0-10); Neutrophil 66 % (42-75)
[2020-09-07] MEDS ORDERED: Losartan/Hydrochlorothiazide 100 mg/25 mg Tablet PO SCH (09:00)
[2020-09-07] MEDS ORDERED: Pantoprazole 40 MG VIAL IVP SCH (09:00)
[2020-09-07] MEDS: Hydrocodone-Acetamin 15 ML UDCUP PO PRN ×2 (09:54→15:42)
[2020-09-07] MEDS: Ondansetron PF 4 MG/2 ML Vial IVP PRN ×2 (09:57→15:46)
[2020-09-07] MEDS: Cepastat Lozenges 1 LOZ PO PRN (15:50)
[2020-09-07 16:04] VITALS: BP 149/85; TEMP 99.2
== END 2020-09-07 18:55 | disposition home or self-care (01) | DRG 621 ==
LOC: SURG A 09-06 09:04 → SJJU 09-06 16:36 → EDSTATUS 09-06 17:00
PROVIDERS: ADMIT Surgery; ATTEND Surgery
PROC: 0D164ZA Bypass Stomach to Jejunum, Percutaneous Endoscopic Approach (ICD-10-PCS; principal; 2020-09-06)
PROC: 0BQT4ZZ Repair Diaphragm, Percutaneous Endoscopic Approach (ICD-10-PCS; 2020-09-06)
PROC: 0DJ08ZZ Inspection of Upper Intestinal Tract, Via Natural or Artificial Opening Endoscopic (ICD-10-PCS; 2020-09-06)
DX: E66.01 Morbid (severe) obesity due to excess calories (principal); Z68.43 Body mass index [BMI] 50.0-59.9, adult; K21.9 Gastro-esophageal reflux disease without esophagitis; K44.9 Diaphragmatic hernia without obstruction or gangrene; I10 Essential (primary) hypertension; E11.9 Type 2 diabetes mellitus without complications; G47.33 Obstructive sleep apnea (adult) (pediatric); M19.90 Unspecified osteoarthritis, unspecified site; Z91.013 Allergy to seafood; Z79.899 Other long term (current) drug therapy
CPT/HCPCS: 36415; 80048; 85025; 93005; 93010; C9113; J0690; J1100; J1170; J1644; J1650; J1885; J2405; J2550; J2704; J3010; J3480; Q0163; S0020

== ENCOUNTER 2020-09-02 17:14 | Outpatient (CLI) | payer OTHER ==
[2020-09-02 18:26] LABS: #Monocytes 0.6 10x3/uL (0.0-1.1); #Neutrophils 6.9 10x3/uL (1.5-8.4); %Basophils 0.4 % (0.0-2.0); %Eosinophils 0.4 % (0.0-6.0); %Lymphocytes 27.2 % (18.0-47.0); %Monocytes 5.4 % (0.0-10.0); %Neutrophils 66.2 % (40.0-75.0); Hemoglobin 12.1 g/dL (12.0-15.5); Mean Corpuscular HGB CONC 33.7 g/dL (32.0-36.0); Mean Corpuscular Hemoglobin 29.2 pg (27.0-33.0); Mean Corpuscular Volume 86.5 fl (81.6-98.3); Mean Platelet Volume 9.7 fl (7.4-10.4); Platelet Count 258 10x3/uL (150-450); RBC Distribution Width 14.2 % (11.5-14.5); Red Blood Cell (RBC) Count 4.15 10x6/uL (3.90-5.03); White Blood Cell (WBC) Count 10.4 10x3/uL (3.5-10.5)
[2020-09-02 18:33] LABS: BHCG - Serum Negative (NEGATIVE); Pregs Control Background? CLEAR/WHITE (CLR/WHITE); Pregs Control Bar Appear? YES (CONTROL BAR)
[2020-09-02 18:39] LABS: ALT (SGPT) 25 U/L (8-55); AST (SGOT) 18 U/L (5-34); Albumin 4.3 g/dL (3.5-5.0); Alkaline Phosphatase 78 U/L (40-110); Anion Gap 13 mmol/L (10-20); BUN (Urea Nitrogen) 15 mg/dL (7.0-18.7); Bilirubin, Total 0.6 mg/dL (0.2-1.2); Calc. Creatinine Clearance 0 mL/min (70-130); Calcium 9.3 mg/dL (7.8-10.44); Carbon Dioxide 29 mmol/L (22-29); Chloride 99 mmol/L (98-107); Globulin 2.9 g/dL (2.4-3.5); Glucose 94 mg/dL (70-105); Potassium 3.6 mmol/L (3.5-5.1); Protein, Total 7.2 g/dL (6.0-8.3); Sodium 137 mmol/L (136-145)
[2020-09-02 20:35] LABS: Hemoglobin A1c 5.8 % (4.0-6.0)
[2020-09-03 04:30] LABS: SARS-CoV-2 PCR by NAA Not Detected (NotDetected)
== END 2020-09-02 17:15 | disposition home or self-care (01) ==
LOC: LABBT 17:14
PROVIDERS: ATTEND Surgery
DX: Z01.818 Encounter for other preprocedural examination (principal); Z20.822 Contact with and (suspected) exposure to COVID-19; K21.9 Gastro-esophageal reflux disease without esophagitis; K31.1 Adult hypertrophic pyloric stenosis
CPT/HCPCS: 71046; 80053; 83036; 84703; 85025; 87635; 93005; 93010; U0003; U0005

== ENCOUNTER 2020-09-27 10:27 | Day surgery (SDC) | payer OTHER ==
[2020-09-27] MEDS ORDERED: Ondansetron PF 4 MG/2 ML Vial IVP PRN (10:33)
[2020-09-27] MEDS ORDERED: Sodium Chloride 0.9% 20 ML ONE (10:38)
[2020-09-27] MEDS ORDERED: Multivitamins, Adult 10 ML, Thiamine HCl 100 MG in Sodium Chloride 0.9% 1,000 ML IV SCH (10:45)
[2020-09-27] MEDS ORDERED: Sodium Chloride 0.9% 1,000 ML IV SCH (10:45)
[2020-09-27 11:04] VITALS: BP 134/90; TEMP 98.4
== END 2020-09-27 14:51 | disposition home or self-care (01) ==
LOC: ONC/OP 10:27
PROVIDERS: ATTEND Surgery
DX: E86.0 Dehydration (principal); Z91.013 Allergy to seafood
CPT/HCPCS: 96361; 96365; 96375; J2405; J3411; J7050

== ENCOUNTER 2020-10-11 09:24 | Outpatient (CLI) | payer OTHER ==
[2020-10-11 16:32] LABS: SARS-CoV-2 PCR by NAA Not Detected (NotDetected)
== END 2020-10-11 09:25 | disposition home or self-care (01) ==
LOC: LABBT 09:24
PROVIDERS: ATTEND Internal Medicine Gastroenterology
DX: Z01.812 Encounter for preprocedural laboratory examination (principal); Z20.822 Contact with and (suspected) exposure to COVID-19
CPT/HCPCS: 87635; U0003; U0005

== ENCOUNTER 2020-10-12 12:00 | Day surgery (SDC) | payer OTHER ==
[2020-10-11 11:20] VITALS: BMI 53.1
[2020-10-12] MEDS ORDERED: Ketamine 50 MG/ML (10ML VIAL) ONE (14:45)
[2020-10-12] MEDS ORDERED: Midazolam HCl 2 mg/2 ml Vial ONE (14:46)
[2020-10-12] MEDS ORDERED: PROPOFOL 200 MG/20 ML VIAL ONE (15:21)
[2020-10-12] MEDS ORDERED: Lidocaine 1% PF 5 ML VIAL ONE (15:21)
[2020-10-12] MEDS ORDERED: Ondansetron PF 4 MG/2 ML Vial ONE ×2 (15:21→16:09)
[2020-10-12] MEDS ORDERED: Glycopyrrolate 0.2 MG/ML 5 ML SYRINGE ONE (15:21)
[2020-10-12] MEDS ORDERED: Labetalol HCl 100 MG/20 ML VIAL ONE (17:02)
[2020-10-12] MEDS ORDERED: diphenhydrAMINE 50 MG/ML VIAL ONE (17:04)
== END 2020-10-12 17:48 | disposition home or self-care (01) ==
LOC: SDC 12:00
PROVIDERS: ATTEND Internal Medicine Gastroenterology
PROC: 0D758ZZ Dilation of Esophagus, Via Natural or Artificial Opening Endoscopic (ICD-10-PCS; principal; 2020-10-12)
DX: K22.2 Esophageal obstruction (principal); K21.9 Gastro-esophageal reflux disease without esophagitis; Z79.899 Other long term (current) drug therapy; Z91.013 Allergy to seafood; Z98.84 Bariatric surgery status
CPT/HCPCS: J1200; J2250; J2405; J2704

== ENCOUNTER 2021-01-26 15:13 | Outpatient (CLI) | payer OTHER | END 2021-01-26 15:14 | disposition home or self-care (01) | LOC: BICRAD 15:13 | PROVIDERS: ATTEND Internal Medicine Rheumatology | DX: M46.1 Sacroiliitis, not elsewhere classified (principal) | CPT/HCPCS: 72202 ==

== ENCOUNTER 2021-06-13 08:19 | Emergency (ER) | payer OTHER, BC ==
[2021-06-13] MEDS ORDERED: Ondansetron PF 4 MG/2 ML Vial ONE ×2 (08:44→11:34)
[2021-06-13] MEDS ORDERED: Morphine 4 MG/ML VIAL ONE ×2 (08:44→11:16)
[2021-06-13] MEDS ORDERED: Ketorolac Tromethamine 30 MG/ML VIAL ONE (08:44)
[2021-06-13 08:54] LABS: #Eosinphils 0.1 thou/uL (0.0-0.7); #Lymphocytes 1.3 thou/uL (1.20-3.40); #Monocytes 0.4 thou/uL (0.11-0.59); #Neutrophils 4.8 thou/uL (1.40-6.50); %Basophils 0.2 % (0.0-1.0); %Eosinophils 1.3 % (0.0-10.0); %Lymphocytes 19.9 % (21.0-51.0); %Monocytes 6.1 % (0.0-10.0); %Neutrophils 72.5 % (42.0-75.0); Hemoglobin 13.3 g/dL (12.0-16.0); Mean Corpuscular HGB CONC 33.2 g/dL (32.0-36.0); Mean Corpuscular Hemoglobin 30.6 pg (27.0-31.0); Mean Corpuscular Volume 92.3 fL (78.0-98.0); Mean Platelet Volume 7.1 fL (7.4-10.4); Platelet Count 250 thou/uL (130-400); RBC Distribution Width 12.2 % (11.5-14.5); Red Blood Cell (RBC) Count 4.34 mill/uL (4.20-5.40); White Blood Cell (WBC) Count 6.6 thou/uL (4.8-10.8)
[2021-06-13 09:12] LABS: BHCG - Serum Negative (NEGATIVE); Pregs Control Background? CLEAR/WHITE (CLR/WHITE); Pregs Control Bar Appear? YES (CONTROL BAR)
[2021-06-13 09:29] LABS: ALT (SGPT) 23 U/L (8-55); AST (SGOT) 31 U/L (5-34); Alkaline Phosphatase 87 U/L (40-110); Anion Gap 11 mmol/L (10-20); BUN (Urea Nitrogen) 11 mg/dL (7.0-18.7); Bilirubin, Total 0.5 mg/dL (0.2-1.2); Calc. Creatinine Clearance 0 mL/min (70-130); Calcium 9.5 mg/dL (7.8-10.44); Carbon Dioxide 28 mmol/L (22-29); Chloride 103 mmol/L (98-107); Globulin 3.6 g/dL (2.4-3.5); Glucose 86 mg/dL (70-105); Potassium 4.3 mmol/L (3.5-5.1); Protein, Total 7.6 g/dL (6.0-8.3); Sodium 138 mmol/L (136-145)
[2021-06-13] MEDS ORDERED: Iopamidol-370 76% 500 ML 1 ML ONE (11:53)
== END 2021-06-13 12:10 | disposition home or self-care (01) ==
LOC: ERS 08:19
DX: S06.0X0A Concussion without loss of consciousness, initial encounter (principal); M62.830 Muscle spasm of back; V43.52XA Car driver injured in collision with other type car in traffic accident, initial encounter; I10 Essential (primary) hypertension; E11.9 Type 2 diabetes mellitus without complications
CPT/HCPCS: 70450; 71045; 72125; 74177; 80053; 84703; 85025; 96374; 96375; 96376; J1885; J2270; J2405; Q9967

== ENCOUNTER 2021-10-27 10:42 | Outpatient (CLI) | payer OTHER | END 2021-10-27 10:43 | disposition home or self-care (01) | LOC: BICRAD 10:42 | PROVIDERS: ATTEND Anesthesiology | DX: M47.26 Other spondylosis with radiculopathy, lumbar region (principal) | CPT/HCPCS: 72100 ==

== ENCOUNTER 2021-12-13 09:40 | Outpatient (CLI) | payer BC | END 2021-12-13 09:41 | disposition home or self-care (01) | LOC: BICMRI 09:40 | PROVIDERS: ATTEND Anesthesiology | DX: M47.26 Other spondylosis with radiculopathy, lumbar region (principal); M47.25 Other spondylosis with radiculopathy, thoracolumbar region; M47.27 Other spondylosis with radiculopathy, lumbosacral region | CPT/HCPCS: 72148 ==

== ENCOUNTER 2022-09-22 15:15 | Outpatient (CLI) | payer BC | END 2022-09-22 15:16 | disposition home or self-care (01) | LOC: BICRAD 15:15 | PROVIDERS: ATTEND Anesthesiology | DX: M25.561 Pain in right knee (principal); M22.2X1 Patellofemoral disorders, right knee ==

== ENCOUNTER 2023-02-28 15:31 | Outpatient (CLI) | payer BC | END 2023-02-28 15:32 | disposition home or self-care (01) | LOC: BICRAD 15:31 | DX: M47.26 Other spondylosis with radiculopathy, lumbar region (principal); M43.16 Spondylolisthesis, lumbar region | CPT/HCPCS: 72100 ==

== ENCOUNTER 2023-05-01 11:34 | Outpatient (CLI) | payer BC | END 2023-05-01 11:35 | disposition home or self-care (01) | LOC: BICRAD 11:34 | PROVIDERS: ATTEND Nurse Practitioner Family | DX: M25.561 Pain in right knee (principal); M17.11 Unilateral primary osteoarthritis, right knee; M25.861 Other specified joint disorders, right knee ==

== ENCOUNTER 2023-08-03 14:51 | Outpatient (CLI) | payer BC | END 2023-08-03 14:52 | disposition home or self-care (01) | LOC: BICRAD 14:51 | PROVIDERS: ATTEND Registered Nurse | DX: M47.26 Other spondylosis with radiculopathy, lumbar region (principal); M47.817 Spondylosis without myelopathy or radiculopathy, lumbosacral region | CPT/HCPCS: 72100 ==

== ENCOUNTER 2024-03-26 14:51 | Outpatient (CLI) | payer BC | END 2024-03-26 14:52 | disposition home or self-care (01) | LOC: BICRAD 14:51 | PROVIDERS: ATTEND Nurse Practitioner Family | DX: M47.816 Spondylosis without myelopathy or radiculopathy, lumbar region (principal); M43.16 Spondylolisthesis, lumbar region | CPT/HCPCS: 72100 ==